=== PATIENT | female | born 1975 | race Caucasian/White ===

== ENCOUNTER 2025-02-11 23:18 | Emergency (ER) | payer BC ==
[2025-02-11] MEDS ORDERED: Acetaminophen 500 MG TAB ONE (23:46)
== END 2025-02-12 01:54 | disposition home or self-care (01) ==
LOC: CSHERS 23:18
DX: S09.90XA Unspecified injury of head, initial encounter (principal); T14.8XXA Other injury of unspecified body region, initial encounter; S80.211A Abrasion, right knee, initial encounter; S00.81XA Abrasion of other part of head, initial encounter; I10 Essential (primary) hypertension; Z79.899 Other long term (current) drug therapy; W01.10XA Fall on same level from slipping, tripping and stumbling with subsequent striking against unspecified object, initial encounter; Y93.61 Activity, american tackle football
CPT/HCPCS: 70450; 72125; Q0162